=== PATIENT | female | born 1965 | race African-American/Black ===

== ENCOUNTER 2017-11-28 21:00 | Inpatient (IN) | payer OTHER, MEDICAID ==
[~2017-11-28] VITALS: Ht 172.7 cm; Wt 77.1 kg
[2017-11-28] MEDS ORDERED: PANTOPRAZOLE 40 MG/10 ML VIAL IV ONE ×2 (22:30→23:00)
[2017-11-28] MEDS ORDERED: NALBUPHINE HCL 10 MG/1ml INJECTION IV ONE (22:30)
[2017-11-28] MEDS ORDERED: PHYTONADIONE (VIT K)10 MG/ML 1ML VIAL SUBCUT ONE ×2 (22:30→23:00)
[2017-11-28] MEDS ORDERED: ONDANSETRON HCL 4 MG/2 ML VIAL IV ONE (22:30)
[2017-11-28] MEDS ORDERED: SODIUM CHLORIDE 0.9% 1,000 ML IV ONE (22:55)
[2017-11-28 23:30] LABS: INR 1.45 (0.9-1.15); Partial Thromboplastin Time 29.7 sec (22.64-33.71); Prothrombin Time 15.9 sec (9.37-12.3)
[2017-11-29] VITALS (11 sets, daily range): BP systolic 56–105; BP diastolic 18–52
[2017-11-29] MEDS ORDERED: LORazepam 2MG/ML-1ML VIAL IV ONE
[2017-11-29 00:41] LABS: Urine Bacteria NONE SEEN /hpf (None Seen); Urine Blood Negative /uL (Negative); Urine Specific Gravity 1.026 (1.001-1.035); Urine WBC 1 /hpf (0 - 5)
[2017-11-29 02:44] LABS: Basophils # (auto) 0.1 uL; Basophils % (auto) 0.4 % (0.0-2.0); Eosinophils # (auto) 0 uL; Hematocrit 22.8 % (36.0-46.0); Lymphocytes # (auto) 1.4 uL; Lymphocytes % (auto) 7.4 % (10.0-50.0); Mean Corpuscular Hgb Conc. 29.5 g/dL (32.0-36.0); Mean Corpuscular Volume 88.1 fL (80.0-100.0); Monocytes # (auto) 1.6 uL; Monocytes % (auto) 8.5 % (0.0-12.0); Neutrophils # (auto) 15.6 uL; Neutrophils % (auto) 83.7 % (37.0-80.0); Nucleated Red Blood Cells % 0.2 %; Platelet Count (auto) 110 10^3/uL (140-450); Red Blood Cells 2.58 10^6/uL (4.0-5.20); Red Cell Distribution Width 18.6 % (11.8-14.3); White Blood Cell 18.7 10^3/uL (4.4-10.8)
[2017-11-29 02:47] LABS: Hemoglobin 6.7 g/dL (12.2-16.2)
[2017-11-29 02:51] LABS: Albumin 2.5 g/dL (3.4-5.0); BUN/Creatinine Ratio 10.4; Calcium 7.5 mg/dL (8.5-10.1)
[2017-11-29 02:54] LABS: Bilirubin, Total 2.6 mg/dL (0.2-1.0); Potassium 6.7 mmol/L (3.5-5.1); Total Protein 5.7 g/dL (6.4-8.2)
[2017-11-29] MEDS ORDERED: ONDANSETRON HCL 4 MG/2 ML VIAL IV ONE (03:00)
[2017-11-29] MEDS ORDERED: InsuLIN R (HUMAN) 100 UNITS in SODIUM CHL 0.9% 99 ML IV SCH (03:55)
[2017-11-29] MEDS ORDERED: SODIUM CHLORIDE 0.9% 1,000 ML IV SCH ×3 (03:55→09:55)
[2017-11-29] MEDS ORDERED: DEXTROSE (50%) 50ML SYRG IV PRN (04:00)
[2017-11-29] MEDS ORDERED: ACCU-CHEK COMFORT CURVE STRIP VI SCH (04:30)
[2017-11-29] MEDS ORDERED: MIDAZOLAM HCL 5 MG/ML-1ML VIAL ONE ×2 (04:55→06:09)
[2017-11-29] MEDS: NOREPINEPHRINE 8 MG/250ML KIT 250 ML IV SCH ×2 (05:00→06:00)
[2017-11-29] MEDS ORDERED: OCTREOTIDE ACETATE 100 MCG/ML VL ONE (05:06)
[2017-11-29] MEDS ORDERED: PANTOPRAZOLE 40 MG/10 ML VIAL IV ONE ×2 (05:09→06:45)
[2017-11-29] MEDS ORDERED: OCTREOTIDE ACETATE 500 MCG/ML VL ONE ×2 (05:10→05:58)
[2017-11-29] MEDS ORDERED: phytonadione 1 ML ONE (05:36)
[2017-11-29] MEDS ORDERED: SODIUM BICARBONATE 8.4 % INJ 50ML VIAL IV ONE ×3 (06:08→06:45)
[2017-11-29] MEDS: OCTREOTIDE ACETATE 500 MCG in SODIUM CHL 0.9% 99 ML IV SCH ×2 (06:09→06:30)
[2017-11-29] MEDS ORDERED: MIDAZOLAM DRIP 50 mg/50mL 50 ML IV ONE (06:14)
[2017-11-29] MEDS ORDERED: OCTREOTIDE ACETATE 500 MCG in SODIUM CHL 0.9% 99 ML IV SCH ×4 (06:15)
[2017-11-29] MEDS ORDERED: PANTOPRAZOLE 80 MG in SODIUM CHL 0.9% 60 ML IV ONE (06:15)
[2017-11-29] MEDS ORDERED: DEXTROSE (50%) 50ML SYRG IV ONE (06:30)
[2017-11-29] MEDS ORDERED: MORPHINE SULFATE 4 MG/ML SYR/VIAL IV PRN (06:30)
[2017-11-29] MEDS ORDERED: CALCIUM GLUC 4.65meq/50ml D5AE 50 ML IV ONE (06:30)
[2017-11-29] MEDS ORDERED: NITROGLYCERIN 0.4 MG SL TAB SL PRN (06:30)
[2017-11-29] MEDS ORDERED: InsuLIN REG 1unit/0.01ml Soln (100units/ml) IV ONE (06:30)
[2017-11-29] MEDS ORDERED: MIDAZOLAM HCL 5 MG/ML-1ML VIAL IV ONE ×2 (06:45)
[2017-11-29] MEDS ORDERED: PHYTONADIONE (VIT K)10 MG/ML 1ML VIAL IV ONE (06:45)
[2017-11-29] MEDS ORDERED: OCTREOTIDE ACETATE 100 MCG/ML VL SUBCUT ONE (06:45)
[2017-11-29] MEDS ORDERED: EPINEPHrine HCL 1 MG/10 ML SYRG ONE (07:22)
[2017-11-29] MEDS ORDERED: EPINEPHrine HCL INJECTION 4 MG in SODIUM CHL 0.9% 250 ML IV ONE (07:30)
[2017-11-29 08:26] LABS: Alcohol, Urine < 3.0 mg/dL (0-5); Amphetamine Screen, Urine NEGATIVE (NEGATIVE); Barbiturate Scree,Urine NEGATIVE (NEGATIVE); Benzodiazephine Screen, Urine NEGATIVE (NEGATIVE); Cannabinoid Screen, Urine NEGATIVE (NEGATIVE); Cocaine Screen, Urine NEGATIVE (NEGATIVE); Opiate Scree,Urine NEGATIVE (NEGATIVE); Phencyclidine Screen, Urine NEGATIVE (NEGATIVE)
[2017-11-29] MEDS ORDERED: PHENYLEPHRINE INJ 20 MG in D5W 5% 250 ML IV SCH (08:45)
[2017-11-29] MEDS ORDERED: DOPamine 1600MCG/ML D5W 250 ML IV SCH (08:45)
[2017-11-29] MEDS ORDERED: CALCIUM CHLOR(10%) 100MG/ML 10ML SYRINGE IV ONE (20:33)
[2017-11-29] MEDS ORDERED: ATROPINE SULF 0.5 MG/5ML SYR IV ONE (20:33)
[2017-11-29] MEDS ORDERED: SODIUM BICARBONATE 8.4% INJ 50ML SYRINGE IV ONE (20:33)
[2017-11-29] MEDS ORDERED: EPINEPHrine HCL 1 MG/10 ML SYRG IV ONE (20:33)
[2017-11-29] MEDS ORDERED: D5W 5% 100 ML BAG IV ONE (20:33)
[2017-11-29] MEDS ORDERED: DOPamine 1600mCg/ml 400MG/250ml NSorD5 KIT/BAG IV ONE (20:33)
== END 2017-11-29 20:34 | disposition expired | DRG 133 ==
LOC: ER 21:07 → TELE 21:08
PROVIDERS: ADMIT Nurse Practitioner Family; ATTEND Nurse Practitioner Family
PROC: 5A12012 Performance of Cardiac Output, Single, Manual (ICD-10-PCS; 2017-11-28)
PROC: 5A1935Z Respiratory Ventilation, Less than 24 Consecutive Hours (ICD-10-PCS; principal; 2017-11-29)
PROC: 0BH17EZ Insertion of Endotracheal Airway into Trachea, Via Natural or Artificial Opening (ICD-10-PCS; 2017-11-29)
PROC: 30233L1 Transfusion of Nonautologous Fresh Plasma into Peripheral Vein, Percutaneous Approach (ICD-10-PCS; 2017-11-29)
PROC: 30233N1 Transfusion of Nonautologous Red Blood Cells into Peripheral Vein, Percutaneous Approach (ICD-10-PCS; 2017-11-29)
PROC: 30233K1 Transfusion of Nonautologous Frozen Plasma into Peripheral Vein, Percutaneous Approach (ICD-10-PCS; 2017-11-29)
DX: J96.00 Acute respiratory failure, unspecified whether with hypoxia or hypercapnia (principal); I46.9 Cardiac arrest, cause unspecified; E10.10 Type 1 diabetes mellitus with ketoacidosis without coma; E87.5 Hyperkalemia; K92.2 Gastrointestinal hemorrhage, unspecified; D64.9 Anemia, unspecified; K74.60 Unspecified cirrhosis of liver
CPT/HCPCS: 36415; 36430; 36556; 36600; 71010; 74176; 80053; 80307; 81001; 82010; 82140; 82805; 85025; 85610; 85730; 86850; 86900; 86901; 86920; 92950; 93005; 94002; 96361; 96374; 96375; C9113; J0171; J0461; J0610; J1815; J2250; J2405; J3430; J7060